=== PATIENT | male | born 1995 | race American Indian/Alaskan Native ===

== ENCOUNTER 2017-08-24 16:26 | Emergency (ER) | payer OTHER ==
[2017-08-24 16:35] VITALS: BMI 18.4
[2017-08-24 16:39] VITALS: TEMP 98.2
[2017-08-24] MEDS ORDERED: cefTRIAXone (Rocephin) 1 gm Inj IM STA (18:32)
--- NOTE | 2017-08-24 18:42 | ED PDOC ---
Arrival/HPI - General Chief Complaint: Male Genitourinary Time Seen by Provider: 08/24/17 16:38 Historian: Patient - History of Present Illness Narrative History of Present Illness (Text): 08/24/17 18:38 Pt is a 21 yo M who presents with his mother c/o possible STD and would like to be assessed and treated. Pt reports that he had unprotected sex on Monday, on Monday his girlfriend informed home that she was diagnosed with chlamydia. By Monday, pt reports that he had stomach pain and discharge from the penis along with burning on urination. Denies previous infection, fever, chills, hematuria, sob, cp, back pain, n/v/d. Time/Duration: 24 hours Symptom Onset: Gradual Symptom Course: Unchanged Quality: Pressure Severity Level: 2 Context: Home Past Medical History - Provider Review Nursing Documentation Reviewed: Yes - Travel History Have you recently traveled outside [place] w/in the past 3 mons?: No - Past History Past History: No Previous - Infectious Disease Hx of Infectious Diseases: None - Tetanus Immunization Tetanus Immunization: Unknown - Psychiatric Hx Substance Use: Yes - Anesthesia Hx Anesthesia: No Family/Social History - Physician Review Nursing Documentation Reviewed: Yes Family/Social History: Unknown Family HX Smoking Status: Never Smoked Hx Alcohol Use: No Hx Substance Use: Yes Substance used: marijuana Allergies/Home Meds Allergies/Adverse Reactions: Allergies No Known Allergies Allergy (Verified 08/24/17 16:35) Review of Systems - Physician Review All systems were reviewed & negative as marked: Yes - Review of Systems Constitutional: Normal Eyes: Normal ENT: Normal Respiratory: Normal Cardiovascular: Normal Gastrointestinal: Normal Genitourinary Male: Dysuria, Other (lower abdominal pressure, penile discharge) Musculoskeletal: Normal Skin: Normal Neurological: Normal Endocrine: Normal Hemo/Lymphatic: Normal Psychiatric: Normal Physical Exam Vital Signs Reviewed: Yes Vital Signs Temp Pulse Resp BP Pulse Ox 08/24/17 20:05 62 16 121/78 99 08/24/17 16:37 98.2 F 66 18 120/75 98 Temperature: Afebrile Blood Pressure: Normal Pulse: Regular Respiratory Rate: Normal Appearance: Positive for: Well-Appearing, Non-Toxic, Comfortable Pain Distress: None Mental Status: Positive for: Alert and Oriented X 3 - Systems Exam Head: Present: Atraumatic, Normocephalic Pupils: Present: PERRL Extroacular Muscles: Present: EOMI Conjunctiva: Present: Normal Mouth: Present: Moist Mucous Membranes Neck: Present: Normal Range of Motion Respiratory/Chest: Present: Clear to Auscultation, Good Air Exchange. No: Respiratory Distress, Accessory Muscle Use Cardiovascular: Present: Regular Rate and Rhythm, Normal S1, S2. No: Murmurs Abdomen: Present: Normal Bowel Sounds, Other (suprapubic tenderness on palpation ). No: Distention, Peritoneal Signs Genitourinary Male: Present: Normal External Genitalia, Penile Discharge Back: Present: Normal Inspection Upper Extremity: Present: Normal Inspection. No: Cyanosis, Edema Lower Extremity: Present: Normal Inspection. No: Edema Neurological: Present: GCS=15, CN II-XII Intact, Speech Normal Skin: Present: Warm, Dry, Normal Color. No: Rashes Psychiatric: Present: Alert, Oriented x 3, Normal Insight, Normal Concentration Medical Decision Making ED Course and Treatment: 08/24/17 18:42 Pt is a 21 yo M who presents with his mother c/o possible STD and would like to be assessed and treated. Plan Urine GC Rocephin 1 g IM STAT w lidocaine 1% mixed in. Progress Note 08/24/17 19:51 UA indicates UTI Rocephin 1g IM given STAT and Azithromycin 250mg PO Rx for home Advised pt to use a condom from now on - Lab Interpretations Lab Results: Lab Results 08/24/17 18:58: Urine Color Yellow, Urine Appearance Sl cloudy, Urine pH 6.0, Ur Specific [place] 1.015, Urine Protein Negative, Urine Glucose (UA) Negative, Urine Ketones Negative, Urine Blood Negative, Urine Nitrate Negative, Urine Bilirubin Negative, Urine Urobilinogen 0.2, Ur Leukocyte Esterase Moderate H, Urine RBC 0 - 2, Urine WBC 15 - 20, Ur Epithelial Cells 0 - 2, Urine Bacteria Trace I have reviewed the lab results: Yes (Positive leukocytes in urine) - Medication Orders Current Medication Orders: Discontinued Medications Ceftriaxone Sodium (Rocephin) 1 gm IM STAT STA PRN Reason: Protocol Stop: 08/24/17 18:33 Last Admin: 08/24/17 19:33 Dose: 1 gm IM Administration Charges Document 08/24/17 19:33 HI (Rec: 08/24/17 19:34 HI [id number]) Injection Site MAR Injection Site Left Gluteus Jorge Charges for Administration # of IM Administrations 1 Disposition/Present on Arrival - Present on Arrival Any Indicators Present on Arrival: No History of DVT/PE: No History of Uncontrolled Diabetes: No Urinary Catheter: No History of Decub. Ulcer: No History Surgical Site Infection Following: None - Disposition Have Diagnosis and Disposition been Completed?: Yes Diagnosis: Discharge from penis, UTI (urinary tract infection) Disposition: HOME/ ROUTINE Disposition Time: 19:54 Patient Plan: Discharge Condition: GOOD Discharge Instructions (ExitCare): Sexually Transmitted Diseases (ED), Condom Use (ED), Safe Sex (ED), Urinary Tract Infection in Men (ED) Additional Instructions: Dear Patient, Please take Azithromycin tonight or first thing in the morning. Drink plenty of fluids and practice protected sex using a condom. Please notify any sexual partners you have been in contact with, ask them to be evaluated and treated as well. Should you develop fever or chills, increase in penile discharge, return to the emergency department. Follow up with your primary doctor in the next 24 hrs. Prescriptions: Azithromycin 250 mg PO ONCE 1 Days #1 tablet Referrals: Kathryn Arguello MD [Primary Care Provider] - Follow up with primary Forms: [employer] ([place])
[2017-08-24 19:47] LABS: URINE APPEARANCE SL CLOUDY (CLEAR); URINE BILIRUBIN NEGATIVE (NEGATIVE); URINE BLOOD NEGATIVE (NEGATIVE); URINE COLOR YELLOW (YELLOW); URINE GLUCOSE (UA) NEGATIVE (NEGATIVE); URINE LEUKOCYTE ESTERASE MODERATE Leu/uL (NEGATIVE); URINE NITRATE NEGATIVE (NEGATIVE); URINE PROTEIN NEGATIVE mg/dL (<30 mg/dL); URINE UROBILINOGEN 0.2 E.U./dL (<1 E.U./dL)
[2017-08-24 19:51] LABS: URINE EPITHELIAL CELLS 0 - 2 /hpf (0-5); URINE RBC 0 - 2 /hpf (0-2); URINE WBC 15 - 20 /hpf (0-6)
[2017-08-24 19:52] LABS: URINE BACTERIA TRACE (NEG)
[2017-08-24 20:07] VITALS: BP 121/78; PULSE 62; RESP 16; O2SAT 99
== END 2017-08-24 20:05 | disposition home or self-care (01) ==
LOC: ED 16:26
DX: N39.0 Urinary tract infection, site not specified (principal); R36.9 Urethral discharge, unspecified
CPT/HCPCS: 81001; 87086; 87491; 87591; 96372; 99284; J0696